=== PATIENT | female | born 1980 | race African-American/Black ===

== ENCOUNTER 2017-03-08 06:37 | Day surgery (SDC) | payer BC ==
[~2017-03-08] VITALS: Ht 172.7 cm; Wt 130.0 kg
[~2017-03-08 06:37] MED LIST: BISAC-EVAC10 MG PR; BISACODYL5 MG PO; DOCUSATE SODIU100 MG PO; KEFLEX500 MG PO; LOVENOX40 MG/0.4 SC; MAG-AL PLUS SUS30 ML PO; MILK OF MAGNESI10 ML PO; ONDANSETRON4 MG/2 ML IV; OXYCODONE HCL5 MG PO; SENNA8.6 MG PO; TYLENOL REGULA325 MG PO; ZOFRAN ODT4 MG PO; [UNRECOGNIZED DRUG - OTHER] PO
[2017-03-08 07:17] VITALS: BP 138/87
[2017-03-08 07:46] LABS: HEMATOCRIT 37.3 % (36.0-46.0); MCH 25.4 PG (29.0-34.0); MCHC 31.6 G/DL (30.0-36.0); MCV 80.2 FL (83-99); MEAN PLAT.VOLUME 10.2 uM^3 (9.5-12.4); PLATELET COUNT 393 K/uL (156-360); RBC DIS.WIDTH-CV 15.6 % (11.8-14.6); RBC DIS.WIDTH-SD 44.6 % (39-53); RED BLOOD COUNT 4.65 M/uL (3.80-5.20); WHITE BLOOD COUNT 9.7 K/uL (4.1-10.2)
[2017-03-08 07:55] LABS: ADD MIUA? YES; BILIRUBIN NEGATIVE; BLOOD NEGATIVE; COLOR YELLOW ((YELLOW)); GLUCOSE (STRIP) NEGATIVE; KETONES NEGATIVE; LEUKOCYTES TRACE; NITRITE NEGATIVE; PROTEIN (STRIP) NEGATIVE; SPECIFIC GRAVITY 1.016 (1.000-1.030); UROBILINOGEN 0.2 MG/DL (0.2-1.0)
[2017-03-08 08:00] LABS: BACTERIA RARE /HPF; EPITHELIAL CELLS 1+ /HPF; MUCUS TRACE /LPF; RED BLOOD CELLS 20-30 /HPF (0-5)
[2017-03-08 08:10] LABS: ANION GAP 6 MEQ/L (2-14); CHLORIDE 104 MEQ/L (99-109); GFR ESTIMATE (CALCULATED) > 59 mL/min/; GLUCOSE 99 mg/dL (70-99); POTASSIUM 4.1 MEQ/L (3.7-5.4); SAMPLE HEMOLYSIS CHECK 0; SAMPLE ICTERIC CHECK 0; SAMPLE LIPEMIA CHECK 0; SODIUM 137 MEQ/L (136-147); UREA NITROGEN (BUN) 10 mg/dL (9-23)
[2017-03-08 09:09] LABS: INTERNAL CONTROL VALID? YES
[2017-03-08] MEDS ORDERED: PERCOCET 5/31 TABLET PO (10:10)
[2017-03-08 11:02] VITALS: BP 128/76
[2017-03-08 11:30] VITALS: BP 135/90
[2017-03-08 11:49] VITALS: BP 130/68
== END 2017-03-08 11:55 | disposition home or self-care (01) ==
LOC: SDC 06:37
PROVIDERS: Surgery
DX: L73.2 Hidradenitis suppurativa (principal); L92.9 Granulomatous disorder of the skin and subcutaneous tissue, unspecified; Z68.41 Body mass index [BMI] 40.0-44.9, adult; Z80.3 Family history of malignant neoplasm of breast
CPT/HCPCS: 80048; 81003; 84703; 85027; 88305; J0131; J0690; J1170; J2250

== ENCOUNTER 2017-09-16 06:41 | Emergency (ER) | payer BC ==
[~2017-09-16] VITALS: Ht 172.7 cm; Wt 133.6 kg
[~2017-09-16 06:41] MED LIST changes: +PERCOCET 5/31 TABLET PO
[2017-09-16] MEDS ORDERED: CIPRO HC OTIC S10 ML BOTH EARS (07:11)
[2017-09-16 07:51] VITALS: BP 141/103
== END 2017-09-16 07:52 | disposition home or self-care (01) ==
LOC: EME 06:41
DX: H60.333 Swimmer's ear, bilateral (principal)
CPT/HCPCS: 99281; 99284

== ENCOUNTER 2018-05-07 11:32 | Day surgery (SDC) | payer BC ==
[~2018-05-07] VITALS: Ht 172.7 cm; Wt 127.0 kg
[~2018-05-07 11:32] MED LIST changes: +CIPRO HC OTIC S10 ML BOTH EARS
[2018-05-07 12:09] VITALS: BP 130/70
[2018-05-07] MEDS ORDERED: NORCO 5/3251 TABLET PO (13:55)
[2018-05-07 14:30] VITALS: BP 136/89
[2018-05-07 15:20] VITALS: BP 154/88
== END 2018-05-07 15:24 | disposition home or self-care (01) ==
LOC: SDC 11:32
PROC: 0JBF0ZZ Excision of Left Upper Arm Subcutaneous Tissue and Fascia, Open Approach (ICD-10-PCS; principal; 2018-05-07)
DX: L73.2 Hidradenitis suppurativa (principal); E66.9 Obesity, unspecified; Z68.41 Body mass index [BMI] 40.0-44.9, adult
CPT/HCPCS: 88304; J0690; J2250; J3010

== ENCOUNTER 2018-05-10 13:06 | Emergency (ER) | payer BC ==
[~2018-05-10] VITALS: Ht 172.7 cm; Wt 130.6 kg
[~2018-05-10 13:06] MED LIST changes: +NORCO 5/3251 TABLET PO
[2018-05-10 13:19] VITALS: BP 133/91
== END 2018-05-10 16:09 | disposition left against medical advice (07) ==
LOC: EME 13:06
DX: L98.9 Disorder of the skin and subcutaneous tissue, unspecified (principal); Z53.21 Procedure and treatment not carried out due to patient leaving prior to being seen by health care provider